=== PATIENT | female | born 1995 | race American Indian/Alaskan Native ===

== ENCOUNTER 2016-10-05 | Outpatient (CLI) | payer MEDICARE, MEDICAID | END 2016-10-05 14:51 | disposition critical access hospital (66) | CPT/HCPCS: A0425; A0429 ==

== ENCOUNTER 2016-10-05 15:12 | Emergency (ER) | payer MEDICARE, MEDICAID ==
[2016-10-05] MEDS ORDERED: HYDROmorphone 1 MG/ML SYRINGE IM STA (16:17)
[2016-10-05] MEDS ORDERED: ONDANSETRON 4 MG/2 ML VIAL IM STA (16:17)
[2016-10-05] MEDS ORDERED: HYDROmorphone 1 MG/ML SYRINGE ONE (16:22)
[2016-10-05] MEDS ORDERED: ONDANSETRON 4 MG/2 ML VIAL ONE (16:23)
== END 2016-10-05 17:14 | disposition home or self-care (01) ==
DX: S83.8X2A Sprain of other specified parts of left knee, initial encounter (principal); S86.912A Strain of unspecified muscle(s) and tendon(s) at lower leg level, left leg, initial encounter; X50.1XXA Overexertion from prolonged static or awkward postures, initial encounter; Y93.89 Activity, other specified; Y92.89 Other specified places as the place of occurrence of the external cause; F17.200 Nicotine dependence, unspecified, uncomplicated
CPT/HCPCS: 73564; 96372; 99283; 99284; J1170

== ENCOUNTER 2016-11-02 09:54 | Outpatient (CLI) | payer MEDICARE, MEDICAID | END 2016-11-02 09:55 | disposition home or self-care (01) | DX: M25.562 Pain in left knee (principal); S80.02XA Contusion of left knee, initial encounter; S83.412A Sprain of medial collateral ligament of left knee, initial encounter; S83.32XA Tear of articular cartilage of left knee, current, initial encounter ==

== ENCOUNTER 2017-04-27 06:20 | Day surgery (SDC) | payer MEDICARE, MEDICAID ==
[2017-04-27] MEDS ORDERED: ceFAZolin 2 GM/50 ML 50 ML IV ONE (06:33)
[2017-04-27] MEDS ORDERED: LACTATED RINGERS 1,000 ML IV ONE ×2 (07:06→08:35)
[2017-04-27 07:27] LABS: HCG UR QUAL POSITIVE
[2017-04-27] MEDS ORDERED: SODIUM CHLORIDE FLUSH 0.9% 10 ML SYRINGE IVP ONE (09:19)
[2017-04-27 09:51] VITALS: BP 124/78
[2017-04-27] MEDS ORDERED: MIDAZOLAM 2 MG/2 ML VIAL IVP ONE (10:00)
[2017-04-27] MEDS ORDERED: ONDANSETRON 4 MG/2 ML VIAL IVP ONE (10:00)
[2017-04-27] MEDS ORDERED: fentaNYL 100 MCG/2 ML VIAL IVP ONE (10:00)
[2017-04-27] MEDS ORDERED: DEXAMETHASONE 4 MG/ML VIAL IVP ONE (10:00)
[2017-04-27] MEDS ORDERED: LIDOCAINE-MPF 2% 5 ML VIAL IM ONE (10:00)
[2017-04-27] MEDS ORDERED: PROPOFOL 200 MG/20 ML VIAL IVP ONE (10:00)
[2017-04-27] MEDS ORDERED: ROCURONIUM 50 MG/5 ML VIAL IVP ONE (10:00)
[2017-04-27] MEDS ORDERED: SUCCINYLCHOLINE 200 MG/10 ML VIAL IVP ONE (10:00)
--- NOTE | 2017-04-27 15:14 | OPERATIVE REPORT ---
DATE OF SURGERY: 04/27/2017 00:00:00 PREOPERATIVE DIAGNOSIS: Left knee lateral patellar recurrent dislocation. POSTOPERATIVE DIAGNOSIS: Left knee chondromalacia patella. NAME OF PROCEDURE: A medial patellofemoral ligament reconstruction. SURGEON: Alex Washburn MD ANESTHESIA: General. INDICATIONS FOR SURGERY: The patient is a 21-year-old female who reports a previous patellar dislocat ion and subsequent knee pain. The patient's report of patellar dislocation was not documented by an x -ray; however, the patient did seem to have severe chondromalacia symptoms that were managed in a non operative fashion with physical therapy with the patient showing ongoing pain and on clinical exam warren ving a difficult exam due to the patient's inability to relax substantially in the office. Ultimately , surgery was recommended with the diagnosis being recurrent patellar subluxation/dislocation. FINDINGS AT SURGERY: The patient's knee exam under anesthesia was completely normal and compatible wi th her other knee, and the degree of lateral glide and displacement of the patella was grade 2 of 4, and the patient had a neutral tilt of her patella and normal tracking with some subpatellar crepitus. The patient's ligamentous exam of the knee was normal and Q angle within normal limits. The patient' s opposite knee had an identical exam. DESCRIPTION OF OPERATIVE PROCEDURE: The patient was taken to the operating room with the intent to pe rform reconstruction of her knee. After general anesthesia and after adequate timeout, the patient wa s in the process of being positioned after which an exam under anesthesia was performed of the patien t's knee, and the findings of that exam are noted above. At this point, the patient's laboratory test s became available of a positive urine test that was duplicated on a secondary test, and th e decision was made to abort the planned surgical ligament reconstruction not only based on the fact that her tests were indicating that she might be but also by the results of the exam under anesthesia not indicating patellar instability, so the patient was awakened and taken to the recovery room, and the family and the patient were later talked to about the exam findings and the ongoing pl an for management of her knee pain. The complication of the surgery was the late reporting of a urine positive test causing an additive change in the surgery procedure, although as stated the patient's procedure was to be changed and the ligament reconstruction to be cancelled because of no e vident instability of her patella. JOB #: [id number] EXT JOB #:[id number]
== END 2017-04-27 06:21 | disposition home or self-care (01) ==
LOC: SDS 06:20
PROVIDERS: ATTEND Orthopaedic Surgery
PROC: [UNRECOGNIZED PROCEDURE] (principal; 2017-04-27)
DX: M22.42 Chondromalacia patellae, left knee (principal); Z53.09 Procedure and treatment not carried out because of other contraindication; E66.9 Obesity, unspecified; Z32.01 Encounter for pregnancy test, result positive; F17.210 Nicotine dependence, cigarettes, uncomplicated; Z68.39 Body mass index [BMI] 39.0-39.9, adult

== ENCOUNTER 2017-06-11 14:52 | Outpatient (CLI) | payer MEDICARE, MEDICAID | END 2017-06-11 14:53 | disposition home or self-care (01) | LOC: LAB.N 14:52 | PROVIDERS: ATTEND Nurse Practitioner Gerontology | DX: N91.2 Amenorrhea, unspecified (principal); Z33.1 Pregnant state, incidental; Z32.01 Encounter for pregnancy test, result positive | CPT/HCPCS: 84702; 84703 ==

== ENCOUNTER 2018-02-04 10:55 | Outpatient (CLI) | payer MEDICARE, MEDICAID | END 2018-02-04 10:56 | disposition critical access hospital (66) | LOC: EMS 10:55 | PROVIDERS: ATTEND Surgery | DX: R56.9 Unspecified convulsions (principal) | CPT/HCPCS: A0425; A0429 ==

== ENCOUNTER 2018-02-04 11:19 | Emergency (ER) | payer MEDICARE, MEDICAID ==
[2018-02-04 11:25] VITALS: BP 138/89
--- NOTE | 2018-02-04 11:37 | ED Physician Documentation ---
History of Present Illness - Stated complaint Stated Complaint: SZ - Chief complaint Chief Complaint: Neuro - History obtained from History obtained from: Patient - History of Present Illness Timing: Today Pain level max: 0 Pain level now: 0 Improved by: CBD oil Worsened by: nothing - Additonal information Additional information: Patient is a 22-year-old female who presents to the emergency department with a recurrent seizure today. She states that her seizures have been controlled with CBD oil and cannabis use. States she has not seen a neurologist for several years. Believes that she had an MRI and EEG several years ago but is unsure. She was at the doctor's office today when her seizure occurred and her primary care provider sent her here for evaluation. 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 No head injuries. No altered mental status. Did have brief postictal state per EMS. No tongue biting. No urinary incontinence. 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 : None HEENT: None Psych: Post traumatic stress disorder Musculoskeletal: Scoliosis, Chronic back pain Derm: None - Past Surgical History Past Surgical History: Yes HEENT: Myringotomy (tubes), Tonsil/Adenoidectomy, Other - Present Medications Home Medications: Ambulatory Orders Medication Instructions Recorded Confirmed Ibuprofen [Motrin] 400 mg PO Q8H PRN 04/19/17 04/19/17 - Allergies Allergies/Adverse Reactions: Allergies Allergy/AdvReac Type Severity Reaction Status Date / Time bleach Allergy Rash Uncoded 04/19/17 10:35 - Social History Does the pt smoke?: Yes Smoking Status: Current every day smoker Does the pt drink ETOH?: No Does the pt have substance abuse?: No - Immunizations Immunizations are current?: Yes - POLST Patient has POLST: No PD ED PE NORMAL - Vitals Vital signs reviewed: Yes - General General: Alert and oriented X 3, No acute distress - HEENT HEENT: Atraumatic, PERRL, Moist mucous membranes - Neck Neck: Supple, no meningeal sign, No bony TTP - Cardiac Cardiac: RRR - Respiratory Respiratory: No respiratory distress, Clear bilaterally - Abdomen Abdomen: Soft, Non tender, Non distended - Back Back: No spinal TTP - Derm Derm: Warm and dry - Extremities Extremities: No tenderness to palpate - Neuro Neuro: Alert and oriented X 3, 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, No motor deficit, No sensory deficit, Normal speech Eye Opening: Spontaneous Motor: Obeys Commands Verbal: Oriented GCS Score: 15 - Psych Psych: Normal mood, Normal affect Results - Vitals Vitals: Vital Signs - 24 hr 02/04/18 11:20 Temperature 36.4 C L Heart Rate 74 Respiratory 18 Rate Blood Pressure 138/89 H O2 Saturation 100 Oxygen O2 Source Room air - Labs Labs: Laboratory Tests 02/04/18 02/04/18 02/04/18 11:30 11:30 12:04 WBC 9.0 RBC 4.64 Hgb 13.2 Hct 39.6 MCV 85.5 MCH 28.5 MCHC 33.3 RDW 13.3 Plt Count 381 MPV 8.0 Neut # 6.0 Lymph # 2.1 Kidder # 0.6 Eos # 0.3 Baso # 0.0 Absolute Nucleated RBC 0.00 Nucleated RBC % 0.0 Sodium Potassium Chloride Carbon Dioxide Anion Gap BUN Creatinine Estimated GFR (MDRD) Glucose Calcium Urine Color YELLOW Urine Clarity CLEAR Urine pH 6.0 Ur Specific [place] >=1.030 H Urine Protein NEGATIVE Urine Glucose (UA) NEGATIVE Urine Ketones NEGATIVE Urine Occult Blood TRACE-INTA Urine Nitrite NEGATIVE Urine Bilirubin NEGATIVE Urine Urobilinogen 0.2 (NORMAL) Ur Leukocyte Esterase NEGATIVE Ur Microscopic Review NOT INDICATED Urine Culture Comments NOT INDICATED Urine HCG, Qual NEGATIVE Urine Opiates Screen NEGATIVE Ur Oxycodone Screen NEGATIVE Urine Methadone Screen NEGATIVE Ur Propoxyphene Screen NEGATIVE Ur Barbiturates Screen NEGATIVE Ur Tricyclics Screen NEGATIVE Ur Phencyclidine Scrn NEGATIVE Ur Amphetamine Screen NEGATIVE U Methamphetamines Scrn NEGATIVE U Benzodiazepines Scrn NEGATIVE Urine Cocaine Screen NEGATIVE U Cannabinoids Screen POSITIVE H 02/04/18 12:04 WBC RBC Hgb Hct MCV MCH MCHC RDW Plt Count MPV Neut # Lymph # Kidder # Eos # Baso # Absolute Nucleated RBC Nucleated RBC % Sodium 137 Potassium 3.7 Chloride 106 Carbon Dioxide 24 Anion Gap 7.0 BUN 14 Creatinine 0.7 Estimated GFR (MDRD) 103 Glucose 113 H Calcium 9.1 Urine Color Urine Clarity Urine pH Ur Specific [place] Urine Protein Urine Glucose (UA) Urine Ketones Urine Occult Blood Urine Nitrite Urine Bilirubin Urine Urobilinogen Ur Leukocyte Esterase Ur Microscopic Review Urine Culture Comments Urine HCG, Qual Urine Opiates Screen Ur Oxycodone Screen Urine Methadone Screen Ur Propoxyphene Screen Ur Barbiturates Screen Ur Tricyclics Screen Ur Phencyclidine Scrn Ur Amphetamine Screen U Methamphetamines Scrn U Benzodiazepines Scrn Urine Cocaine Screen U Cannabinoids Screen - Rads (name of study) head CT Radiology: Prelim report reviewed, EMP read contemporaneously, See rad report ( No evidence for intracranial hemorrhage or depressed calvarial fracture. 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 MRI could further characterize if clinically warranted. ) PD MEDICAL DECISION MAKING - ED course Complexity details: reviewed results, re-evaluated patient, considered differential, d/w patient, d/w PMD (Dr. Velasco) ED course: Patient is a 22-year-old female who presents to the emergency department with a recurrent seizure. No acute findings on head CT. It had been [address] since [address] last [address] scan her primary care provider requested that we repeat this today. No acute laboratory issues. She was informed not to drive until cleared by neurology or by her primary care provider. Will withhold any antiepileptic drugs at this time until she is seen by neurology and determined what type of seizures she is having. Patient counseled regarding signs and symptoms for which I believe and urgent re-evaluation would be necessary. Patient with good understanding of and agreement to plan and is comfortable going home at this time This document was made in part using voice recognition software. While efforts are made to proofread this document, sound alike and grammatical errors may occur. Departure - Departure Disposition: 01 Home, Self Care Clinical Impression: Seizure Condition: Good Instructions: ED Seizure Recurrent Follow-Up: Master Velasco MD [Credentialed Staff Provider] - Within 1 week Comments: You need to follow up with your doctor for an MRI, EEG and neurology referral. You are not to drive until cleared by your doctor or neurology. Do not go swimming or take a bath either. Return if you worsen. Discharge Date/Time: 02/04/18 12:48
[2018-02-04 11:47] LABS: MUDS CUTOFF CONCENTRATIONS CUTOFF CONC BELOW:
[2018-02-04 12:06] LABS: BILIRUBIN,URINE NEGATIVE (NEGATIVE); GLUCOSE, URINE (UA) NEGATIVE (NEGATIVE); KETONES,URINE (UA) NEGATIVE (NEGATIVE); LEUKOCYTE ESTERASE, URINE NEGATIVE (NEGATIVE); NITRITE,URINE NEGATIVE (NEGATIVE); OCCULT BLOOD,URINE TRACE-INTA (NEGATIVE); PROTEIN,URINE NEGATIVE (NEGATIVE); UROBILINOGEN,URINE 0.2 (NORMAL) E.U./dL (NORMAL)
[2018-02-04 12:09] LABS: CLARITY,URINE CLEAR (CLEAR); HCG UR QUAL NEGATIVE
--- NOTE | 2018-02-04 12:16 | CT Report ---
EXAM: CT HEAD EXAM DATE: 02/04/2018 12:00 PM. CLINICAL HISTORY: Seizure, possible head injury. Fall. Patient denies hitting head. COMPARISON: Head CT 12/25/2013. TECHNIQUE: Multiaxial CT images were obtained from the foramen magnum to the vertex. Reformats: Coron al. IV contrast: None. In accordance with CT protocol optimization, one or more of the following dose reduction techniques w ere utilized for this exam: automated exposure control, adjustment of mA and/or KV based on patient s ize, or use of iterative reconstructive technique. FINDINGS: Parenchyma: No intraparenchymal hemorrhage. No evidence of mass, midline shift, or CT findings of inf arction. Acevedo-white differentiation is distinct. 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 No subdural or epidural collections identified. Ventricles: Normal in size and position. Sinuses and Orbits: Imaged paranasal sinuses, orbits, and mastoids show no significant abnormality. Bones: No evidence of fracture or calvarial defect. Other: None. IMPRESSION: 1. No evidence for intracranial hemorrhage or depressed calvarial fracture. 2. 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 MRI could further charac terize if clinically warranted. [facility] Referring Provider Line: [phone] SITE ID: [id number]
[2018-02-04 12:17] LABS: AMPHETAMINE SCREEN,URINE NEGATIVE (NEGATIVE); BENZODIAZEPINES SCREEN, URINE NEGATIVE (NEGATIVE); COCAINE SCREEN URINE NEGATIVE (NEGATIVE); METHADONE SCREEN, URINE NEGATIVE (NEGATIVE); METHAMPHETAMINES SCREEN, URINE NEGATIVE (NEGATIVE); OPIATE SCREEN, URINE NEGATIVE (NEGATIVE); OXYCODONE SCREEN, URINE NEGATIVE (NEGATIVE); PROPOXYPHENE SCREEN, URINE NEGATIVE (NEGATIVE); TRICYCLIC ANTIDEPRESSANT,URINE NEGATIVE (NEGATIVE)
[2018-02-04 12:20] LABS: BASOPHILS % (AUTO) 0.5 %; EOSINOPHILS # (AUTO) 0.3 10^3/uL (0.0-0.7); HGB - HEMOGLOBIN 13.2 g/dL (12.0-16.0); LYMPHOCYTES # (AUTO) 2.1 10^3/uL (1.5-3.5); LYMPHOCYTES % (AUTO) 23.3 %; MEAN CORPUSCULAR HEMOGLOBIN 28.5 pg (27.0-31.0); MEAN CORPUSCULAR HGB CONC 33.3 g/dL (32.0-36.0); MEAN CORPUSCULAR VOLUME 85.5 fL (81.0-99.0); MONOCYTES # (AUTO) 0.6 10^3/uL (0.0-1.0); MONOCYTES % (AUTO) 6.8 %; NEUTROPHILS % (AUTO) 66.4 %; PLT - PLATELET COUNT 381 10^3/uL (130-450); RED BLOOD COUNT 4.64 10^6/uL (4.20-5.40); RED CELL DISTRIBUTION WIDTH 13.3 % (12.0-15.0)
[2018-02-04 12:28] LABS: CALCIUM 9.1 mg/dL (8.5-10.3); CREATININE 0.7 mg/dL (0.4-1.0)
== END 2018-02-04 12:48 | disposition home or self-care (01) ==
LOC: EDUNIT# → ED 11:19
DX: G40.909 Epilepsy, unspecified, not intractable, without status epilepticus (principal); F17.200 Nicotine dependence, unspecified, uncomplicated
CPT/HCPCS: 36415; 70450; 80048; 80306; 81001; 81003; 81025; 85025; 87086; 99283; 99284

== ENCOUNTER 2018-10-01 11:06 | Emergency (ER) | payer MEDICARE, MEDICAID ==
--- NOTE | 2018-10-01 12:25 | ED Physician Documentation ---
PD HPI OPHTHO - Stated complaint Stated Complaint: LEFT EYE PX - Chief complaint Chief Complaint: Heent - History obtained from History obtained from: Patient - History of Present Illness Timing - onset: Other (2 days of left eye irritation with greenish drainage at times and blurry vision when the drainage is heavy but not generally. She does not wear contacts. 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 : None HEENT: None Psych: Post traumatic stress disorder Musculoskeletal: Scoliosis, Chronic back pain Derm: None - Past Surgical History Past Surgical History: Yes HEENT: Myringotomy (tubes), Tonsil/Adenoidectomy, Other - Present Medications Home Medications: Ambulatory Orders Medication Instructions Recorded Confirmed Ibuprofen [Motrin] 400 mg PO Q8H PRN 04/19/17 04/19/17 Polymyxin B/Trimeth Ophth Drop 1 drops EACHEYE Q3H 7 Days #1 10/01/18 [Polytrim Ophth Drops] bottle - Allergies Allergies/Adverse Reactions: Allergies Allergy/AdvReac Type Severity Reaction Status Date / Time bleach Allergy Rash Uncoded 10/01/18 11:28 - Social History Does the pt smoke?: Yes Smoking Status: Current every day smoker Does the pt drink ETOH?: No Does the pt have substance abuse?: No - Immunizations Immunizations are current?: Yes - POLST Patient has POLST: No PD ED PE NORMAL - Vitals Vital signs reviewed: Yes - General General: Alert and oriented X 3, No acute distress - HEENT HEENT: PERRL, EOMI, Other (Mild left conjunctivitis with soft globes) - Neck Neck: Supple, no meningeal sign, No bony TTP - Neuro Neuro: Alert and oriented X 3, Normal speech Results - Vitals Vitals: Vital Signs - 24 hr 10/01/18 11:26 Temperature 36 C L Heart Rate 86 Respiratory 20 Rate Blood Pressure 143/97 H O2 Saturation 98 Oxygen O2 Source Room air Departure - Departure Disposition: 01 Home, Self Care Clinical Impression: Conjunctivitis, left eye Qualifiers: Conjunctivitis type: acute Acute conjunctivitis type: unspecified Qualified Code(s): H10.32 - Unspecified acute conjunctivitis, left eye Condition: Good Record reviewed to determine appropriate education?: Yes Instructions: ED Conjunctivitis Nonspecific Follow-Up: Gary Dent MD [Provider Admit Priv/Credential] - (3-5 days if not better) Prescriptions: Polymyxin B/Trimeth Ophth Drop [Polytrim Ophth Drops] 1 drops EACHEYE Q3H 7 Days #1 bottle Comments: Your blood pressure was elevated today on check into the emergency department. This does not mean that you have hypertension, it is a common phenomenon to come to the emergency department and have elevated blood pressure. I recommend that you see your primary care physician within the week to have it rechecked when you are feeling better.
[2018-10-01 12:26] VITALS: BP 150/95
== END 2018-10-01 12:27 | disposition home or self-care (01) ==
LOC: ED 11:06
DX: H10.32 Unspecified acute conjunctivitis, left eye (principal); R03.0 Elevated blood-pressure reading, without diagnosis of hypertension; F17.200 Nicotine dependence, unspecified, uncomplicated
CPT/HCPCS: 99283

== ENCOUNTER 2018-11-07 07:44 | Outpatient (CLI) | payer MEDICARE, MEDICAID ==
[2018-11-07 08:30] LABS: HCG,QUALITATIVE BLOOD NEGATIVE
== END 2018-11-07 07:45 | disposition home or self-care (01) ==
LOC: LAB 07:44
PROVIDERS: ATTEND Anesthesiology
DX: Z01.812 Encounter for preprocedural laboratory examination (principal); M22.12 Recurrent subluxation of patella, left knee; M25.362 Other instability, left knee
CPT/HCPCS: 36415; 84703

== ENCOUNTER 2018-11-08 06:26 | Day surgery (SDC) | payer MEDICARE, MEDICAID ==
[2018-11-08] MEDS ORDERED: ACETAMINOPHEN 1,000 MG/100 ML 100 ML IV ONE ×2 (06:37→08:00)
[2018-11-08] MEDS ORDERED: CELECOXIB 100 MG CAPSULE PO ONE (06:37)
[2018-11-08] MEDS ORDERED: ceFAZolin 2 GM/50 ML 2 GM/50 ML BAG IV ONE (06:37)
[2018-11-08] MEDS ORDERED: LACTATED RINGERS 1,000 ML IV ONE ×2 (06:59→09:54)
[2018-11-08] MEDS ORDERED: BUPIVACAINE 0.25%-EPI 1:200000 PF 30 ML VIAL ONE (07:11)
--- NOTE | 2018-11-08 07:28 | ANESTHESIA ---
Pre-Anesthesia VS, & Labs - Diagnosis recurrent subluxation of left patella,left knee instability - Procedure left knee arthroscopy, open knee medial patellofemoral reconstruction, lateral release Vital Signs: Temp Pulse Resp BP Pulse Ox 36.3 C L 93 20 147/92 H 96 11/08/18 06:46 11/08/18 06:46 11/08/18 06:46 11/08/18 06:46 11/08/18 06:46 Height 5 ft Weight (kg) 97.6 kg Body Mass Index 43.6 - NPO >8 hours - Is Patient ?: No - Lab Results Lab results reviewed: Yes Home Medications and Allergies Home Medications: Ambulatory Orders Norgestimate-Ethinyl Estradiol [Vfu-Dp-Dcdneidgd Tablet] 1 each PO DAILY 11/07/18 Norgestimate-Ethinyl Estradiol [Qfb-Bf-Dzojxrueh Tablet] 1 each PO DAILY 11/07/18 Allergies/Adverse Reactions: Allergies Allergy/AdvReac Type Severity Reaction Status Date / Time bleach Allergy Rash Uncoded 11/07/18 07:35 Anes History & Medical History - Anesthetic History Anesthesia Complications: reports: No previous complications Family history of Anesthesia Complications: Denies Family history of Malignant Hyperthermia: Denies - Medical History Cardiovascular: reports: Arrhythmia Pulmonary: reports: Other Gastrointestinal: reports: GERD Urinary: reports: None Neuro: reports: Headaches, Migraines, Seizure disorder, Other Musculoskeletal: reports: Scoliosis, Chronic back pain Endocrine/Autoimmune: reports: Other Skin: reports: None Smoking Status: Current every day smoker - Surgical History Eyes Ears Nose Throat (EENT): Myringotomy (tubes), Tonsil/Adenoidectomy, Other Exam General: Alert, Oriented x3, Cooperative, No acute distress Dental: Other (chipped teeth) Mouth Openin Fingerbreadth Neck Mobility: Normal Mallampati classification: II Thyromental Distance: 4-6 cm Respiratory: Lungs clear, Normal breath sounds, No respiratory distress, No accessory muscle use Cardiovascular: Regular rate, Normal S1, Normal S2, No murmurs Mental/Cognitive Status: Alert/Oriented X3, Normal for patient Plan Anesthesia Type: General Consent for Procedure(s) Verified and Reviewed: Yes Code Status: Attempt Resuscitation ASA classification: 2-Mild systemic disease Is this case an emergency?: No
[2018-11-08] MEDS ORDERED: SODIUM CHLORIDE 0.9% 20 ML ONE (07:49)
[2018-11-08] MEDS ORDERED: BACITRACIN 50,000 UNIT VIAL ONE ×2 (07:49→08:09)
[2018-11-08] MEDS ORDERED: ONDANSETRON 4 MG/2 ML VIAL IVP ONE (08:00)
[2018-11-08] MEDS ORDERED: MIDAZOLAM 2 MG/2 ML VIAL IVP ONE (08:00)
[2018-11-08] MEDS ORDERED: DEXAMETHASONE 4 MG/ML VIAL IVP ONE (08:00)
[2018-11-08] MEDS ORDERED: fentaNYL 100 MCG/2 ML VIAL IVP ONE (08:00)
[2018-11-08] MEDS ORDERED: PROPOFOL 200 MG/20 ML VIAL IVP ONE (08:00)
[2018-11-08] MEDS ORDERED: ROPIVACAINE 0.5% PF 20 ML AMPULE EP ONE (08:00)
[2018-11-08] MEDS ORDERED: SODIUM CHLORIDE 0.9% 10 ML ONE (08:09)
[2018-11-08] MEDS ORDERED: EPINEPHrine 1 MG/ML AMP ONE (08:09)
[2018-11-08] MEDS ORDERED: BUPIVACAINE 0.25%-EPI 1:200000 PF 30 ML VIAL SUBQ ONE (08:28)
[2018-11-08] MEDS ORDERED: BACITRACIN 50,000 UNIT VIAL IM ONE (08:28)
[2018-11-08] MEDS ORDERED: HYDROcod/ACETAM 5/325 MG TABLET PO PRN (10:00)
[2018-11-08] MEDS ORDERED: ONDANSETRON 4 MG/2 ML VIAL IVP PRN (10:00)
[2018-11-08] MEDS ORDERED: HYDROmorphone 0.5 MG/0.5 ML SYRINGE ONE (10:25)
[2018-11-08] MEDS ORDERED: KETOROLAC 15 MG/ML VIAL ONE (10:26)
[2018-11-08] MEDS ORDERED: HYDROcod/ACETAM 5/325 MG TABLET ONE (11:09)
[2018-11-08 11:23] VITALS: BP 140/85
--- NOTE | 2018-11-09 10:03 | OPERATIVE REPORT ---
DATE OF SERVICE: 11/08/2018 Physician: Alex Washburn MD PREOPERATIVE DIAGNOSIS: Left knee recurrent patellar lateral dislocation. PREOPERATIVE DIAGNOSES: Left knee recurrent patellar lateral dislocation. PROCEDURE PERFORMED: Left knee arthroscopy with lateral release, followed by open medial patellofemo ral ligament reconstruction utilizing gracilis allograft. SURGEON: Alex Washburn MD. ANESTHESIA: General. INDICATIONS FOR SURGERY: The patient is a 23-year-old girl who has had a longstanding history of lat eral patellar dislocation of the left knee. She presents now for medial patellofemoral ligament emerald nstruction with lateral release. FINDINGS AT SURGERY: The patient's knee exam showed her to have a mild effusion. She had full motio n and normal patellar tracking under anesthesia, and was able to be displaced to near dislocation pas sively in extension. At arthroscopy, she was found to have extensive longitudinal fissuring of the v ora medial aspect of her medial patellar facet. She did not have a visible defect in the medial novoa llofemoral ligament insertion. The remaining chondral surfaces and ligamentous and meniscal tissues were intact. Post-reconstruction, the patient had excellent tracking of her patella, and her quadran t displacement was down to at most 2/4 laterally. DESCRIPTION OF OPERATIVE PROCEDURE: The patient was taken to the operating room, given a general ane sthetic, and her knee was examined. Following this, she was surgically sterilely prepped and draped. A surgical timeout was held, and surgery progressed with an arthroscopy of the knee utilizing an an terolateral portal. The knee was very carefully inspected and at the conclusion, a lateral release w as undertaken with cautery through the anterolateral portal of the lateral retinaculum. The patient' s open reconstruction was proceeded with, with a 1.5 inch incision on the medial border of the patell a, exposing that surface, and placing two drill holes of 4 mm diameter and 25 mm depth. The allograf t gracilis was whip-stitched on each end, and these ends were applied into these tunnels using the Sw britneyeLock anchors, and firmly secured into the patella. This created a loop of secured gracilis tendon , and that loop was passed through tissues down to the medial area of the knee at the proposed site o f insertion, that was determined radiographically with C-arm imaging and localization. A transverse Beath pin was placed, followed by drilling of 6 mm up to the lateral femoral cortex, which then allow ed passage of these tissues with a passing suture and tensioning with the knee in 20 degrees of flexi on and the lateral patellar facet aligned laterally with the lateral aspect of the femur. This is wh ere the interference screw was placed to fix the graft. The patient was cycled many times before act ually placing the fixation in the knee, to ensure that there was no asymmetric tightening or isometri c disturbance. The graft was then secured. Wounds were irrigated. Closure was with interrupted Vicryl in subcutaneous tissues, and Monocryl margo sure of skin. Multiple infiltrations were performed with Marcaine with epinephrine in her wounds and in her knee. There was minimal bleeding. Soft dressings were applied, and the patient was placed i n the knee brace, taken to the recovery room in stable condition. ESTIMATED BLOOD LOSS: Minimal. COMPLICATIONS: None. COUNTS: Sponge and needle counts correct. TD: 11/09/2018 08:52
== END 2018-11-08 06:27 | disposition home or self-care (01) ==
LOC: SDS 06:26
PROVIDERS: ATTEND Orthopaedic Surgery
PROC: 0MNP4ZZ Release Left Knee Bursa and Ligament, Percutaneous Endoscopic Approach (ICD-10-PCS; principal; 2018-11-08 08:00)
PROC: 0MRP0KZ Replacement of Left Knee Bursa and Ligament with Nonautologous Tissue Substitute, Open Approach (ICD-10-PCS; 2018-11-08 08:00)
DX: M22.02 Recurrent dislocation of patella, left knee (principal); R01.1 Cardiac murmur, unspecified; K21.9 Gastro-esophageal reflux disease without esophagitis; G40.909 Epilepsy, unspecified, not intractable, without status epilepticus; M41.9 Scoliosis, unspecified; G89.29 Other chronic pain; F17.210 Nicotine dependence, cigarettes, uncomplicated; E66.9 Obesity, unspecified; Z68.41 Body mass index [BMI] 40.0-44.9, adult; F41.9 Anxiety disorder, unspecified
CPT/HCPCS: 27427; 29873; A9270; C1713; C1762; J0131; J0690; J1170; J7120

== ENCOUNTER 2018-12-21 10:32 | Emergency (ER) | payer MEDICARE, MEDICAID ==
[2018-12-21 10:41] VITALS: BP 159/94
[2018-12-21] MEDS ORDERED: DEXAMETHASONE 10 MG/ML VIAL PO STA (10:50)
--- NOTE | 2018-12-21 10:55 | ED Physician Documentation ---
PD HPI HEENT - Stated complaint Stated Complaint: LT EAR PAIN - Chief complaint Chief Complaint: Heent - History obtained from History obtained from: Patient - History of Present Illness Timing - onset: How many days ago (3) Timing - duration: Days (3) Timing - details: Gradual onset, Still present Location: Right ear, Left ear Improves: Medication Associated symptoms: Congestion, Headache, Cough Similar symptoms before: Diagnosis (OM) Recently seen: Surgery - Additional information Additional information: 23-year-old female with chronic recurring otitis media has developed ear pain and states that she has an infection in the left ear. She is also complaining some pain that is beginning in the right ear. She has had reconstruction of the right TM and she has had tubes previously a number of times. Review of Systems Constitutional: reports: Fever Eyes: denies: Decreased vision Ears: reports: Ear pain Nose: reports: Rhinorrhea / runny nose, Congestion Throat: denies: Sore throat Cardiac: denies: Chest pain / pressure, Palpitations Respiratory: reports: Cough. denies: Dyspnea GI: denies: Vomiting PD PAST MEDICAL HISTORY - Past Medical History Cardiovascular: Arrhythmia Respiratory: Other Neuro: Headaches, Migraines, Seizure disorder, Other Endocrine/Autoimmune: Other GI: GERD HEAD OF ART: Ovarian cysts : None HEENT: Chronic sinusitis, Other Psych: Anxiety, Panic attacks, Post traumatic stress disorder Musculoskeletal: Scoliosis, Chronic back pain Derm: None - Past Surgical History Past Surgical History: Yes HEENT: Myringotomy (tubes), Tonsil/Adenoidectomy, Other - Present Medications Home Medications: Ambulatory Orders Medication Instructions Recorded Confirmed Norgestimate-Ethinyl Estradiol 1 each PO DAILY 11/07/18 11/08/18 [[id number] Tablet] Amox/Clav 875/125 [Augmentin] 1 each PO Q12H #20 tablet 12/21/18 - Allergies Allergies/Adverse Reactions: Allergies Allergy/AdvReac Type Severity Reaction Status Date / Time Bleach (Sodium Hypochlorite) Allergy Intermediate Respiratory Verified 11/08/18 10:04 - Social History Does the pt smoke?: Yes Smoking Status: Current every day smoker Does the pt drink ETOH?: No Does the pt have substance abuse?: No - Immunizations Immunizations are current?: Yes - POLST Patient has POLST: No PD ED PE NORMAL - Vitals Vital signs reviewed: Yes (tachy and hypertensive ) - General General: Alert and oriented X 3, No acute distress, Well developed/nourished - HEENT HEENT: Atraumatic, PERRL, EOMI, Other (both TM's are inflamed with distortion of the landmarks the right is more acutely inflamed. ) - Neck Neck: Supple, no meningeal sign, No bony TTP - Cardiac Cardiac: RRR, No murmur - Respiratory Respiratory: No respiratory distress, Clear bilaterally - Abdomen Abdomen: Soft, Non tender - Back Back: No CVA TTP, No spinal TTP - Derm Derm: Normal color, Warm and dry, No rash - Extremities Extremities: No deformity, No edema - Neuro Neuro: Alert and oriented X 3, validation scientist 2-12 intact, No motor deficit, No sensory deficit, Normal speech Eye Opening: Spontaneous Motor: Obeys Commands Verbal: Oriented GCS Score: 15 - Psych Psych: Normal mood, Normal affect Results - Vitals Vitals: Vital Signs - 24 hr 12/21/18 10:40 Temperature 36.4 C L Heart Rate 109 H Respiratory 20 Rate Blood Pressure 159/94 H O2 Saturation 97 Oxygen O2 Source Room air PD MEDICAL DECISION MAKING - ED course Complexity details: considered differential, d/w patient ED course: 23-year-old female with chronic recurrent otitis has acute otitis again today and she is administered dexamethasone 10 mg orally we will place her on some Augmentin. Departure - Departure Disposition: 01 Home, Self Care Clinical Impression: Otitis media Qualifiers: Otitis media type: suppurative Chronicity: acute Laterality: bilateral Recurrence: recurrent Spontaneous tympanic membrane rupture: without spontaneous rupture Qualified Code(s): H66.006 - Acute suppurative otitis media without spontaneous rupture of ear drum, recurrent, bilateral Condition: Stable Instructions: ED Otitis Media Acute Adult Follow-Up: Michela Rodgers ARNP [Primary Care Provider] - Prescriptions: Amox/Clav 875/125 [Augmentin] 1 each PO Q12H #20 tablet
== END 2018-12-21 11:05 | disposition home or self-care (01) ==
LOC: ED 10:32
DX: H66.006 Acute suppurative otitis media without spontaneous rupture of ear drum, recurrent, bilateral (principal); F17.200 Nicotine dependence, unspecified, uncomplicated
CPT/HCPCS: 99283

== ENCOUNTER 2019-07-13 16:03 | Emergency (ER) | payer MEDICARE, MEDICAID ==
[2019-07-13 16:13] VITALS: BP 138/86
--- NOTE | 2019-07-13 16:48 | ED Physician Documentation ---
History of Present Illness - Stated complaint Stated Complaint: BILATERAL EAR PX - Chief complaint Chief Complaint: Heent - History obtained from History obtained from: Patient - History of Present Illness Timing: How many days ago (2-3) Pain level max: 6 Pain level now: 5 - Additonal information Additional information: 23-year-old female states that she has chronic recurrent ear infections. Complaining of bilateral ear pain. No fevers. Mild rhinorrhea and congestion. No coughing. No vomiting. 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 : None HEENT: Chronic sinusitis, Other Psych: Anxiety, Panic attacks, Post traumatic stress disorder Musculoskeletal: Scoliosis, Chronic back pain Derm: None - Past Surgical History Past Surgical History: Yes HEENT: Myringotomy (tubes), Tonsil/Adenoidectomy, Other - Present Medications Home Medications: Ambulatory Orders Medication Instructions Recorded Confirmed Norgestimate-Ethinyl Estradiol 1 each PO DAILY 11/07/18 11/08/18 [[id number]-Kt-Arysqqtrk Tablet] Amox/Clav 875/125 [Augmentin] 1 each PO Q12H #20 tablet 12/21/18 Amox/Clav 875/125 [Augmentin] 1 each PO Q12H #20 tablet 07/13/19 - Allergies Allergies/Adverse Reactions: Allergies Allergy/AdvReac Type Severity Reaction Status Date / Time Bleach (Sodium Hypochlorite) Allergy Intermediate Respiratory Verified 07/13/19 16:13 - Social History Does the pt smoke?: Yes Smoking Status: Current every day smoker Does the pt drink ETOH?: No Does the pt have substance abuse?: No - Immunizations Immunizations are current?: Yes - POLST Patient has POLST: No PD ED PE NORMAL - Vitals Vital signs reviewed: Yes - General General: Alert and oriented X 3, No acute distress, Well developed/nourished - HEENT HEENT: Moist mucous membranes, Pharynx benign, Other (Left TM is normal. Right TM is erythematous, dull, bulging with loss of landmarks. Purulent fluid present.) - Neck Neck: Supple, no meningeal sign - Cardiac Cardiac: RRR - Respiratory Respiratory: No respiratory distress, Clear bilaterally - Derm Derm: Warm and dry - Neuro Neuro: Alert and oriented X 3 - Psych Psych: Normal mood, Normal affect Results - Vitals Vitals: Oxygen O2 Source Room air PD MEDICAL DECISION MAKING - ED course Complexity details: considered differential, d/w patient ED course: Patient with a right acute otitis media. Will place on antibiotics. We will have her follow-up with her doctor for further care. Patient counseled regarding signs and symptoms for which I believe and urgent re-evaluation would be necessary. Patient with good understanding of and agreement to plan and is comfortable going home at this time This document was made in part using voice recognition software. While efforts are made to proofread this document, sound alike and grammatical errors may occur. Departure - Departure Disposition: Home, Self Care Clinical Impression: Otitis media Qualifiers: Otitis media type: suppurative Chronicity: acute Laterality: right Recurrence: recurrent Spontaneous tympanic membrane rupture: without spontaneous rupture Qualified Code(s): H66.004 - Acute suppurative otitis media without spontaneous rupture of ear drum, recurrent, right ear Condition: Good Instructions: ED Otitis Media Acute Adult Follow-Up: your,doctor in 1week [Other] Prescriptions: Amox/Clav 875/125 [Augmentin] 1 each PO Q12H #20 tablet Comments: Return if you worsen. Take all antibiotics until gone. Discharge Date/Time: 07/13/19 16:51
== END 2019-07-13 16:51 | disposition home or self-care (01) ==
LOC: ED 16:03
DX: H66.004 Acute suppurative otitis media without spontaneous rupture of ear drum, recurrent, right ear (principal); F17.200 Nicotine dependence, unspecified, uncomplicated
CPT/HCPCS: 99282; 99283

== ENCOUNTER 2023-03-16 06:18 | Emergency (ER) | payer MEDICAID, MEDICARE ==
--- OUTSIDE RECORDS SUMMARY | 2023-03-16 06:46 | EXTERNAL MEDICAL SUMMARY RPT | Continuity of Care Document ---
Author Name Unknown Address [address] [place] [address] Phone Organization [place] Address [address] [place] [address] Phone Care Team Providers Care Ghost Writer Name Role Phone Blanca Obregon Unavailable Unavailable Allergies and Intolerances date description facility type (no date) CAT DANDER [facility] (unknown) (no date) LACTOSE [facility] (unknown) (no date) SODIUM HYPOCHLORITE SOLUTION [facility] [place] [facility] [place] (no date) BLEACH (SODIUM HYPOCHLORITE) [facility] ([facility] (no date) LATEX [facility] (unknown) Medications date description facility 2022-12-30 00:00 diclofenac sodium 75 mg delayed release oral tablet [facility] Rheumatology Problems date description facility 2022-12-30 15:55:09 Return [facility] 2022-12-30 16:44:19 Other chronic pain [facility] Total Care 2022-12-30 16:44:19 Low back pain, unspecified [facility] Total Care Social History date description facility 2022-12-31 00:00 Smokes tobacco daily [facility] R heumatology Vital Signs date measurement value units 2022-12-30 00:00 BMI 45.26 kg/m2 2022-12-30 00:00 BP_diastolic 87 mmHg 2022-12-30 00:00 BP_systolic 125 mmHg 2022-12-30 00:00 heart_rate 96 /min 2022-12-30 00:00 o2_saturation 97 % 2022-12-30 00:00 weight_metric 102.51 kg 2022-12-30 00:00 weight_standard 226 lb
[2023-03-16] MEDS ORDERED: KETOROLAC 30 MG/ML VIAL IVP STA (07:31)
[2023-03-16] MEDS ORDERED: ONDANSETRON 4 MG/2 ML VIAL IVP STA (07:31)
[2023-03-16] MEDS ORDERED: SODIUM CHLORIDE 0.9% 1,000 ML IV STA (07:31)
[2023-03-16 07:43] LABS: BILIRUBIN,URINE NEGATIVE (NEGATIVE); GLUCOSE, URINE (UA) NEGATIVE (NEGATIVE); KETONES,URINE (UA) NEGATIVE (NEGATIVE); LEUKOCYTE ESTERASE, URINE NEGATIVE (NEGATIVE); NITRITE,URINE NEGATIVE (NEGATIVE); OCCULT BLOOD,URINE TRACE-INTA (NEGATIVE); PROTEIN,URINE NEGATIVE (NEGATIVE); UROBILINOGEN,URINE 0.2 (NORMAL) E.U./dL (NORMAL)
[2023-03-16 07:45] LABS: CLARITY,URINE CLEAR (CLEAR); HCG UR QUAL NEGATIVE
[2023-03-16 08:10] LABS: BASOPHILS # (AUTO) 0.1 10^3/uL (0.0-0.1); BASOPHILS % (AUTO) 0.5 %; EOSINOPHILS # (AUTO) 0.1 10^3/uL (0.0-0.7); EOSINOPHILS % (AUTO) 0.6 %; HCT - HEMATOCRIT 41.4 % (37.0-47.0); HGB - HEMOGLOBIN 13.3 g/dL (12.0-16.0); LYMPHOCYTES # (AUTO) 1.2 10^3/uL (1.5-3.5); LYMPHOCYTES % (AUTO) 11.3 %; MEAN CORPUSCULAR HEMOGLOBIN 27.8 pg (27.0-31.0); MEAN CORPUSCULAR HGB CONC 32.1 g/dL (32.0-36.0); MEAN CORPUSCULAR VOLUME 86.4 fL (81.0-99.0); MEAN PLATELET VOLUME 10.3 fL (7.9-10.8); MONOCYTES # (AUTO) 0.5 10^3/uL (0.0-1.0); MONOCYTES % (AUTO) 4.3 %; NEUTROPHILS # (AUTO) 8.9 10^3/uL (1.5-6.6); PLT - PLATELET COUNT 442 10^3/uL (130-450); RED BLOOD COUNT 4.79 10^6/uL (4.20-5.40); RED CELL DISTRIBUTION WIDTH 12.7 % (12.0-15.0); WHITE BLOOD COUNT 10.7 x10^3/uL (4.8-10.8)
[2023-03-16 08:23] LABS: ALBUMIN/GLOBULIN RATIO 1.4 (1.0-2.2); BILIRUBIN,TOTAL 0.6 mg/dL (0.2-1.0); CALCIUM 8.7 mg/dL (8.5-10.3); CREATININE 0.8 mg/dL (0.4-1.0); POTASSIUM 4.2 mmol/L (3.5-5.0); TOTAL PROTEIN 6.9 g/dL (6.7-8.2)
[2023-03-16] MEDS ORDERED: HYDROmorphone 1 MG/ML CARPUJECT IVP STA (08:27)
--- NOTE | 2023-03-16 09:32 | CT Report ---
PROCEDURE: ABDOMEN/PELVIS WO INDICATIONS: LLQ pain TECHNIQUE: A CT scan of the abdomen and pelvis was performed without the use of intravenous contrast. Images we re recorded and evaluated at appropriate window settings. Reformats: coronal and sagittal. For radiat ion dose reduction, the following was used: automated exposure control, adjustment of mA and/or kV ac cording to patient size. COMPARISON: 08/27/2013 FINDINGS: Image quality: Good Lower chest: Unremarkable Solid organs: Hepatic steatosis. There are regions of focal fatty sparing. Gallbladder is unremarkabl e on CT evaluation. No pathologic biliary ductal dilation or pancreatic ductal dilation. No splenomeg janet. No adrenal nodules. There is no hydronephrosis. There is a 2 mm left interpolar region calcified stone, unlikely to be a source of pain. Vessels and lymph nodes: No abdominal aortic aneurysm. No pathologic lymph nodes by size criteria. Bowel and peritoneum: Incidental large posterior gastric diverticulum is present. No evidence of smal l bowel obstruction. No pathologic ascites. Few colonic diverticula are present, without significant acute inflammatory changes. A mildly dilated appendix is seen measuring up to 9 mm, however, internal gas is present. There is mi nimal periappendiceal fat stranding. No abscess. Body wall: An umbilical hernia is present measuring 2.5 cm at the neck, containing fat and moderately congested omentum. There are at least 2 sacs. Pelvis: Reproductive organs appear physiologic, but not well evaluated on CT. Left ovary is prominent . Bladder unremarkable Bones: No acute or suspicious osseous finding. Degenerative changes are present. IMPRESSION: Mildly dilated appendix with minimal periappendiceal stranding, however, there is internal gas which is usually a reassuring imaging finding. Correlate with location of pain. No hydronephrosis. 2 mm left interpolar region calcified stone in the kidney, unlikely to be a source of symptoms. Umbilical hernia measuring 2.5 cm at the neck containing fat and moderately congested omentum. Prominent left ovary. Consider pelvic ultrasound if there is concern for pelvic pathology. Incidentally noted large posterior gastric diverticulum and hepatic steatosis. Reviewed by: Guero Duran MD on 03/16/2023 9:31 AM PDT Approved by: Guero Duran MD on 03/16/2023 9:31 AM PDT Station ID: [id number]
--- NOTE | 2023-03-16 10:20 | ED Physician Documentation ---
PD HPI ABD PAIN - Stated complaint Stated Complaint: NAUSEA/CONSTIPATION - Chief complaint Chief Complaint: Abd Pain - History obtained from History obtained from: Patient, Family - History of Present Illness Timing - onset: Today Timing - duration: Hours Timing - details: Abrupt onset, Still present Quality: Sharp, Pain Location: Periumbilical, LLQ Radiation: Lower back Improved by: Laying still Worsened by: Moving, Position, Palpation Associated symptoms: Nausea. No: Fever, Vomiting, Hematemesis, Diarrhea, Constipation Similar symptoms before: No diagnosis Recently seen: Not recently seen - Additional information Additional information: Isidra Kaur is a 27-year-old female with a history of frequent urinary tract infections gastritis reflux and obesity who presents today with acute onset of abdominal pain.She is complaining of pain in the periumbilical area and radiating into the left lower abdomen. She feels the pain is mostly on the left side. She does know she has a hernia that is periumbilical and she is able to push that back in does not seem tender. Review of Systems Constitutional: denies: Fever Ears: denies: Ear pain Nose: denies: Congestion Throat: denies: Sore throat Cardiac: denies: Chest pain / pressure Respiratory: denies: Dyspnea, Cough GI: reports: Abdominal Pain. 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 : None HEENT: Chronic sinusitis, Other Psych: Anxiety, Panic attacks, Post traumatic stress disorder Musculoskeletal: Scoliosis, Chronic back pain Derm: None - Past Surgical History Past Surgical History: Yes HEENT: Myringotomy (tubes), Tonsil/Adenoidectomy, Other - Present Medications Home Medications: Ambulatory Orders Medication Instructions Recorded Confirmed Diclofenac Sodium Dr [Voltaren] 75 mg PO DAILY 03/16/23 03/16/23 Gabapentin [Neurontin] 100 mg PO BID 03/16/23 03/16/23 Gabapentin [Neurontin] 200 mg PO HS 03/16/23 03/16/23 HYDROcod/ACETAM 5/325 [Greenleaf 5/325] 1 - 2 tablet PO Q6H PRN #14 tablet 03/16/23 - Allergies Allergies/Adverse Reactions: Allergies Allergy/AdvReac Type Severity Reaction Status Date / Time Bleach (Sodium Hypochlorite) Allergy Intermediate Respiratory Verified 07/13/19 16:13 - Social History Does the pt smoke?: Yes Smoking Status: Current every day smoker Does the pt drink ETOH?: No Does the pt have substance abuse?: No - Immunizations Immunizations are current?: Yes - POLST Patient has POLST: No PD ED PE NORMAL - Vitals Vital signs reviewed: Yes (Hypertensive) - General General: Alert and oriented X 3, Well developed/nourished, Other (Moaning in pain) - HEENT HEENT: Atraumatic, PERRL, EOMI - Neck Neck: Supple, no meningeal sign, No bony TTP - Cardiac Cardiac: RRR, No murmur - Respiratory Respiratory: No respiratory distress, Clear bilaterally - Abdomen Abdomen: Normal bowel sounds, Soft, Non distended, No organomegaly, Other (Minimal tenderness to the left abdomen without guarding or rebound.) - Back Back: No CVA TTP, No spinal TTP - Derm Derm: Normal color, Warm and dry, No rash - Extremities Extremities: No deformity, No edema - Neuro Neuro: Alert and oriented X 3, airplane pilot helper 2-12 intact, No motor deficit, No sensory d eficit, Normal speech Eye Opening: Spontaneous Motor: Obeys Commands Verbal: Oriented GCS Score: 15 - Psych Psych: Normal mood, Normal affect Results - Vitals Vitals: Vital Signs - 24 hr 03/16/23 03/16/23 03/16/23 06:36 07:56 09:13 Temperature 35.9 C L Heart Rate 76 95 72 Respiratory 16 18 15 Rate Blood Pressure 136/90 H 136/86 H 147/88 H O2 Saturation 97 100 98 03/16/23 11:14 Temperature 36.7 C Heart Rate 85 Respiratory 20 Rate Blood Pressure 131/83 H O2 Saturation 99 Oxygen O2 Source Room air - Labs Labs: Laboratory Tests 03/16/23 03/16/23 03/16/23 06:50 07:45 07:45 WBC 10.7 RBC 4.79 Hgb 13.3 Hct 41.4 MCV 86.4 MCH 27.8 MCHC 32.1 RDW 12.7 Plt Count 442 MPV 10.3 Neut # (Auto) 8.9 H Lymph # (Auto) 1.2 L Perry # (Auto) 0.5 Eos # (Auto) 0.1 Baso # (Auto) 0.1 Absolute Nucleated RBC 0.00 Nucleated RBC % 0.0 Sodium 139 Potassium 4.2 Chloride 109 Carbon Dioxide 25 Anion Gap 5.0 L BUN 13 Creatinine 0.8 Estimated GFR (MDRD) 85 L Glucose 130 H Calcium 8.7 Total Bilirubin 0.6 AST 28 ALT 40 Alkaline Phosphatase 43 Total Protein 6.9 Albumin 4.0 Globulin 2.9 Albumin/Globulin Ratio 1.4 Lipase 33 Urine Color YELLOW Urine Clarity CLEAR Urine pH 5.0 Ur Specific [place] >=1.030 H Urine Protein NEGATIVE Urine Glucose (UA) NEGATIVE Urine Ketones NEGATIVE Urine Occult Blood TRACE-INTA Urine Nitrite NEGATIVE Urine Bilirubin NEGATIVE Urine Urobilinogen 0.2 (NORMAL) Ur Leukocyte Esterase NEGATIVE Ur Microscopic Review NOT INDICATED Urine Culture Comments NOT INDICATED Urine HCG, Qual NEGATIVE - Rads (name of study) CT Relevant Findings:: Prelim report reviewed (Impression: Mildly dilated appendix with minimal periappendical stranding, however, there is internal gas which is usually a reassuring imaging finding. Correlate with location of pain. No hydronephrosis. 2 mm left interpolar region calcified stone in the kidney, unlikely to be a source of sympto), EMP independent interpretation of test Ultrasound pelvis Relevant Findings:: Prelim report reviewed (Impression: Transabdominal only images no acute pelvic abnormality ovarian cyst measuring 2.6 x 1.8 with normal flow), EMP independent interpretation of test PD Medical Decision Making - ED course Complexity details: reviewed results, re-evaluated patient, considered differential, d/w patient, d/w family Reviewed Lab Results: We reviewed a complete blood count showing a normal white blood cell count normal hemoglobin hematocrit and platelets with normal indices chemistries were unremarkable with normal electrolytes normal kidney and liver function a urinalysis is remarkable for a specific gravity of 1.030 otherwise negative and test is negative.My interpretation of these relatively benign laboratory tests are a relatively benign process with no overwhelming featuresImaging was helpful in ruling out a number of possibilities. ED course: 27-year-old female with left lower quadrant abdominal pain has a dominant follicle in the left ovary on ultrasound examination. Findings on CT examination are not diagnostic for this specific pain. She does have periumbilical hernia it is not incarcerated. It does not appear to be the source of the patient's pain. She does not have right lower quadrant abdominal tenderness. She does have a generous left ovary. And she is diagnosed with ovarian cyst as a cause of her pain. She is administered pain medication with improvement. Departure - Departure Disposition: 01 Home, Self Care Clinical Impression: Ovarian cyst Qualifiers: Laterality: left Qualified Code(s): N83.202 - Unspecified ovarian cyst, left side Condition: Stable Instructions: ED Cyst Ovarian Follow-Up: [facility] [Provider Group] Prescriptions: HYDROcod/ACETAM 5/325 [Greenleaf 5/325] 1 - 2 tablet PO Q6H PRN #14 tablet PRN Reason: Pain Comments: Isidra, today it looks like you have an ovarian cyst on the left side that is the cause of your pain. In addition there is an umbilical hernia and this is a condition where a loop of bowel can get caught in the hernia and it is not caught up now. If the loop of bowel does get caught you will have a protrusion that will not go down and this is a reason to come see us in the emergency department. I have E scribed some Greenleaf to the [facility] in [place]. The expectation is this pain may bother you for 1 to 2 days and then improved. If you have worsening of this pain despite the time follow-up with [facility]. Discharge Date/Time: 03/16/23 11:15
[2023-03-16 11:19] VITALS: BP 131/83
--- NOTE | 2023-03-16 11:30 | Ultrasound Report ---
PROCEDURE: Pelvic w/Doppler Limited INDICATIONS: pelvic pain, L TECHNIQUE: Real-time transabdominal scanning was performed of the pelvic organs, with image documentation. Dopp ler interrogation was performed of the ovaries bilaterally. COMPARISON: Same-day CT FINDINGS: Uterus: 8.1 x 4.4 x 5.2 cm. Endometrium is 7 to 8 mm, within normal limits for age. Anteverted positi oning. Ovaries: Left ovary is mildly enlarged measuring up to 19 cc. Right ovary is within normal limits. Le ft ovary has a dominant follicle measuring 2.6 x 1.8 cm. Color and spectral Doppler: flows are documented Other: No pathologic free fluid. IMPRESSION: Transabdominal only images. No acute pelvic abnormality. Reviewed by: Guero Duran MD on 03/16/2023 11:28 AM PDT Approved by: Guero Duran MD on 03/16/2023 11:28 AM PDT Station ID: [id number]
== END 2023-03-16 11:15 | disposition home or self-care (01) ==
LOC: ED 06:18
DX: N83.202 Unspecified ovarian cyst, left side (principal); F17.200 Nicotine dependence, unspecified, uncomplicated; Z79.899 Other long term (current) drug therapy
CPT/HCPCS: 36415; 74176; 76856; 80053; 81003; 81025; 83690; 85025; 93976; 96374; 96375; 99284; J1170; 81001; 87086

== ENCOUNTER 2023-03-17 22:35 | Emergency (ER) | payer MEDICARE ==
--- OUTSIDE RECORDS SUMMARY | 2023-03-17 23:09 | EXTERNAL MEDICAL SUMMARY RPT | Continuity of Care Document ---
Author Name Unknown Address [address] [place] [address] Phone Organization [place] Address [address] [place] [address] Phone Care Team Providers Care Nursing Associate Name Role Phone Blanca Obregon Unavailable Unavailable Allergies and Intolerances date description facility type (no date) CAT DANDER [facility] Total Care (unknown) (no date) LACTOSE [facility] Total Care (unknown) (no date) SODIUM HYPOCHLORITE SOLUTION [facility] ([place] (no date) BLEACH (SODIUM HYPOCHLORITE) [facility] (unknown) (no date) LATEX [facility] Total Care (unknown) Medications date description facility 2022-12-30 00:00 diclofenac sodium 75 mg delayed release oral tablet [facility] Rheumatology Problems date description facility 2022-12-30 15:55:09 Return [facility] 2022-12-30 16:44:19 Other chronic pain [facility] Total Care 2022-12-30 16:44:19 Low back pain, unspecified [facility] Total Care Social History date description facility 2022-12-31 00:00 Smokes tobacco daily [facility] R heumatology Vital Signs date measurement value units 2022-12-30 00:00 BMI 45.26 kg/m2 2022-12-30 00:00 BP_diastolic 87 mmHg 2022-12-30 00:00 BP_systolic 125 mmHg 2022-12-30 00:00 heart_rate 96 /min 2022-12-30 00:00 o2_saturation 97 % 2022-12-30 00:00 weight_metric 102.51 kg 2022-12-30 00:00 weight_standard 226 lb
[2023-03-18] MEDS ORDERED: HYDROmorphone 1 MG/ML CARPUJECT IVP STA (01:18)
[2023-03-18] MEDS ORDERED: DROPERIDOL 5 MG/2 ML VIAL IVP STA (01:18)
[2023-03-18] MEDS ORDERED: KETOROLAC 30 MG/ML VIAL IVP STA (01:18)
[2023-03-18] MEDS ORDERED: iohexoL-300 100 ML VIAL ONE (01:27)
[2023-03-18] MEDS ORDERED: KETOROLAC 60 MG/2 ML VIAL IM STA (02:13)
[2023-03-18] MEDS ORDERED: DROPERIDOL 5 MG/2 ML VIAL IM STA (02:13)
[2023-03-18] MEDS ORDERED: HYDROmorphone 1 MG/ML CARPUJECT IM STA (02:13)
--- NOTE | 2023-03-18 02:36 | ED Physician Documentation ---
History of Present Illness - Stated complaint Stated Complaint: ABD PAIN - Chief complaint Chief Complaint: Abd Pain - History obtained from History obtained from: Patient, Family - Additonal information Additional information: Patient is brought to the emergency department by her father for chief complaint of worsening abdominal pain. The patient was seen here yesterday and diagnosed with an ovarian cyst. She had had both CT doses of the they were fairly unremarkable other than the above-mentioned cyst. The patient was prescribed Vicodin and has been taking this today, but is still having quite a bit of pain. She is also been vomiting which has made her pain worse. Patient is chronically constipated and states this is not any different than usual. No other complaints at this time. 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: Ovarian cysts : None HEENT: Chronic sinusitis, Other Psych: Anxiety, Panic attacks, Post traumatic stress disorder Musculoskeletal: Scoliosis, Chronic back pain Derm: None - Past Surgical History Past Surgical History: Yes HEENT: Myringotomy (tubes), Tonsil/Adenoidectomy, Other - Present Medications Home Medications: Ambulatory Orders Medication Instructions Recorded Confirmed Diclofenac Sodium Dr [Voltaren] 75 mg PO DAILY 03/16/23 03/16/23 Gabapentin [Neurontin] 200 mg PO HS 03/16/23 03/16/23 HYDROcod/ACETAM 5/325 [[place] 5/325] 1 - 2 tablet PO Q6H PRN #14 tablet 03/16/23 Ondansetron Odt [Zofran] 4 mg TL Q6H PRN #10 tablet 03/18/23 - Allergies Allergies/Adverse Reactions: Allergies Allergy/AdvReac Type Severity Reaction Status Date / Time Bleach (Sodium Hypochlorite) Allergy Intermediate Respiratory Verified 07/13/19 16:13 - Social History Does the pt smoke?: Yes Smoking Status: Current every day smoker Does the pt drink ETOH?: No Does the pt have substance abuse?: No - Immunizations Immunizations are current?: Yes - POLST Patient has POLST: No PD ED PE NORMAL - Vitals Vital signs reviewed: Yes - General General: Other (Obese female who is somewhat disheveled, shrieking and crying out in between talking, and appears to be in some degree of pain.) - HEENT HEENT: Atraumatic, PERRL, EOMI, Moist mucous membranes - Neck Neck: Supple, no meningeal sign - Cardiac Cardiac: RRR, No murmur, Strong equal pulses - Respiratory Respiratory: No respiratory distress, Clear bilaterally - Abdomen Abdomen: Soft, Other (Obese, diffuse mild tenderness, worse over suprapubic area.) - Derm Derm: Normal color, Warm and dry, No rash - Extremities Extremities: No deformity, No edema - Neuro Neuro: Alert and oriented X 3 - Psych Psych: Normal mood, Normal affect Results - Vitals Vitals: Vital Signs - 24 hr 03/17/23 03/18/23 03/18/23 23:13 00:21 04:07 Temperature 36.7 C Heart Rate 76 88 Respiratory 16 22 16 Rate Blood Pressure 138/85 H 121/57 L O2 Saturation 98 92 Oxygen O2 Source Room air - Rads (name of study) CT abdomen pelvis without contrast Relevant Findings:: Final report received, See rad report (Left ovary enlarged when compared to the right. Appendix less prominent in size when compared to prior. No inflammatory stranding or edema.) PD Medical Decision Making - ED course Complexity details: reviewed old records, reviewed results, re-evaluated patient, considered differential, d/w patient, d/w family ED course: I reviewed the patient's records from yesterday. The patient was quite dramatic in her presentation and expression of pain, though her abdominal exam was not quite as impressive. I really did not have a good sense of how much Pain the patient was actually in and what her pain tolerance was. The patient was already on narcotic pain medication and at this point, I really did not feel there is any other option except to repeat her imaging and see if anything had changed. She was worked up with CT of the abdomen pelvis. The patient had very difficult peripheral access, so the CT was done without contrast this time after 6 failed attempts at IV placement. The patient was reevaluated and found to be sleeping comfortably in bed after medications. Her CT did not show any concerning findings or changes since the last one a couple of days ago. We have discussed home management of symptoms, as well as the usual indications for return. The patient has taken only 4 of her Vicodin over the last 2 days I have discussed with dad that she can be more aggressive with the pain medicine at she is not getting good enough pain control. Departure - Departure Disposition: 01 Home, Self Care Clinical Impression: Abdominal pain Qualifiers: Abdominal location: lower abdomen, unspecified Qualified Code(s): R10.30 - Lower abdominal pain, unspecified Vomiting Qualifiers: Vomiting type: bilious vomiting Nausea presence: with nausea Qualified Code(s): R11.14 - Bilious vomiting Ovarian cyst Qualifiers: Laterality: left Qualified Code(s): N83.202 - Unspecified ovarian cyst, left side Condition: Stable Instructions: ED Abdominal Pain Female Non-Specific Abdominal Pain, ED Cyst Ovarian, ED Nausea Vomiting Follow-Up: Sarbjit Flower MD [Provider Admit Priv/Credential] - Prescriptions: Ondansetron Odt [Zofran] 4 mg TL Q6H PRN #10 tablet PRN Reason: Nausea / Vomiting Comments: The CT does not show any worsening of anything in the abdomen since the CT that was done a couple of days ago. You do have a small ovarian cyst on the left. It is possible that this is causing your pain, since this do expand and contract throughout the various phases of the female monthly cycle. It is possible that you could have pain for some other reason, though no emergent or serious condition has been identified. At this point, your pain is expected to blow over on its own. You may take the pain medication up to 2 pills at a time, every 4 hours, if needed. A prescription for nausea medicine has been electronically transmitted to the [facility] pharmacy in [place]. If you continue to have the pain for more than the next week or two, please call the [facility] to make a follow-up appointment for further evaluation. Discharge Date/Time: 03/18/23 04:08
[2023-03-18 04:08] VITALS: BP 121/57
--- NOTE | 2023-03-18 08:41 | CT Report ---
PROCEDURE: ABDOMEN/PELVIS WO INDICATIONS: low abd pain, worsening TECHNIQUE: A CT scan of the abdomen and pelvis was performed without the use of intravenous contrast. Images we re recorded and evaluated at appropriate window settings. Reformats: coronal and sagittal. For radiat ion dose reduction, the following was used: automated exposure control, adjustment of mA and/or kV ac cording to patient size. COMPARISON: CT abdomen and pelvis without, 03/16/2023. FINDINGS: Image quality: Excellent. Lung bases and heart: Unremarkable. Small hiatal hernia. Liver: No solid mass. Moderate hepatic steatosis. Gallbladder and biliary tree: No gallstones. No biliary dilation. Spleen: No splenomegaly. Pancreas: No pancreatic ductal dilation. Adrenals: No adrenal nodule. Kidneys and ureters: There is a 3 mm stone in the left kidney. No hydronephrosis. No renal cystic les ion which requires follow up. No solid mass. Bowel and peritoneum: No bowel distension. No pathologic free fluid. Appendix appears normal. Lymph nodes: No central or retroperitoneal adenopathy. Vessels: No infrarenal aortic aneurysm. PELVIS Reproductive organs: Unremarkable uterus. Prominent left ovary measures 3.4 cm. No free fluid in pelv is. Bladder: No wall thickness, accounting for underdistention. Pelvic lymph nodes: No pelvic adenopathy by size criteria. Bones: No aggressive osseous abnormality. Other: There are periumbilical ventral hernias containing fat with mild stranding unchanged from the last exam. IMPRESSION: 1. Appendix is normal in appearance on the current examination. No secondary CT findings to suggest a cute appendicitis. 2. Fat-containing periumbilical ventral hernias mild fat stranding. 3. A 3 mm nonobstructive left renal calculus. 4. Hepatic steatosis. 5. Small hiatal hernia. 6. Prominent left ovary, indeterminate in clinical significance. No significant discrepancy with the preliminary interpretation. Reviewed by: Robert James MD on 03/18/2023 8:39 AM PDT Approved by: Robert James MD on 03/18/2023 8:39 AM PDT Station ID: [id number]
== END 2023-03-18 04:08 | disposition home or self-care (01) ==
LOC: ED 22:35
DX: N83.202 Unspecified ovarian cyst, left side (principal); R10.30 Lower abdominal pain, unspecified; R11.14 Bilious vomiting; E66.9 Obesity, unspecified; F17.200 Nicotine dependence, unspecified, uncomplicated
CPT/HCPCS: 74176; 96372; 96374; 99283; J1170